=== PATIENT | female | born 1950 | race Caucasian/White ===

== ENCOUNTER → 2017-11-16 | Outpatient (CLI) | payer MEDICARE | LOC: RAD 12:20 | DX: R07.81 Pleurodynia (principal) | CPT/HCPCS: 71046 ==

== ENCOUNTER 2021-07-05 09:04 | Outpatient (CLI) | payer MEDICARE | END 2021-07-05 23:59 | disposition home or self-care (01) | LOC: LAB 09:04 | PROVIDERS: ATTEND Internal Medicine | DX: I10 Essential (primary) hypertension (principal); E78.00 Pure hypercholesterolemia, unspecified; F17.291 Nicotine dependence, other tobacco product, in remission; I25.84 Coronary atherosclerosis due to calcified coronary lesion; J30.9 Allergic rhinitis, unspecified; K21.9 Gastro-esophageal reflux disease without esophagitis; R91.8 Other nonspecific abnormal finding of lung field; Z79.1 Long term (current) use of non-steroidal anti-inflammatories (NSAID) ==